=== PATIENT | female | born 1950 | race Caucasian/White ===

== ENCOUNTER → 2016-07-27 | Day surgery (SDC) | payer MEDICARE ==
[~2016-07-27] MED LIST: BUPIVACAINE/EPINEPHRINE 0.5% PF 10 ML VIAL ONE; LACTATED RINGER'S 1000 ML INJ 1,000 ML ONE; LIDOCAINE 1%/EPINEPHrine 1:100,000 SOLN 20 ML VIAL ONE; MIDAZOLAM HCL 2 MG/2 ML VIAL ONE; ONDANSETRON HCL 4 MG/2 ML VIAL IV PUSH ONE; PROPOFOL 200 MG/20 ML AMP IV ONE; SODIUM CHLORIDE 0.9% INJ 10 ML ONE; ceFAZolin INJ 1,000 MG VIAL ONE
--- NOTE | 2016-07-27 09:25 | TN ---
cc: NILESH QUINONEZ M.D., RUBY ANNE E. M.D. DATE OF SURGERY: 07/27/2016 PREOPERATIVE DIAGNOSIS Breast cancer in need of Umtwto-S-Njjl for chemotherapy. POSTOPERATIVE DIAGNOSIS Breast cancer in need of Pjilaf-X-Zneo for chemotherapy. PROCEDURE Placement of Tdpahp-R-Wyyl under fluoroscopic guidance. ANESTHESIA MAC. SURGEON Dr. Quinonez INDICATION This is a pleasant 65-year-old female who was found to have a breast cancer. She had a previous mastectomy of the other breast and now has this tumor that is HER-2/erin positive. Plans were made for neoadjuvant chemotherapy. DETAILS OF PROCEDURE The patient was taken to the operating room and placed ins supine position. After anesthesia her left shoulder and chest are prepped with Betadine. We anesthetize with Marcaine solution, cannulate the subclavian vein without difficulty. Under fluoroscopic guidance we thread the guidewire into the superior vena cava. We make a subcutaneous pocket. The catheter is cut at 19 cm. The introducer and dilator are then threaded over the guidewire, the guidewire and dilator removed. The catheter is placed in the introducer, the introducer was removed. The catheter is then adjusted so the tip is at the superior vena cava. It is then snapped into place, aspirates blood quite easily and flushed with heparinized solution. This is all done under fluoroscopic guidance. We then close the deep layer with a 3-0 Vicryl and skin with a 4-0 Vicryl. Steri-Strips are applied. Sterile bandage applied. A stat. portable chest x-ray is pending at the time of this dictation. I was told by PACU cxr was ok Nilesh Quinonez MD JKRISTI/CURTIS /9:13 AM /9:18 AM JUSTIN
== END | disposition home or self-care (01) ==
LOC: ESDC 06:52
PROVIDERS: ATTEND Surgery
DX: C50.911 Malignant neoplasm of unspecified site of right female breast (principal); Z17.0 Estrogen receptor positive status [ER+]
CPT/HCPCS: 00532; 36561; 77001; C1788; J0690; J1642; J2250; J2405; J3010; J7120

== ENCOUNTER → 2016-12-13 | Day surgery (SDC) | payer MEDICARE ==
[~2016-12-13] MED LIST changes: +ACETAMINOPHEN 1000 MG/100 ML VIAL IV ONE; +ACETAMINOPHEN/HYDROcodone 325 MG/5 MG TAB ONE; +APREPITANT 40 MG CAP ONE; +BACITRACIN IM FOR SOLN 50,000 UNIT VIAL ONE; +BUPIVACAINE LIPOSOME PF 1.3% 20 ML VIAL ONE; -BUPIVACAINE/EPINEPHRINE 0.5% PF 10 ML VIAL ONE; +BUPIVACAINE/EPINEPHRINE 0.5% PF 30 ML VIAL ONE; +GENTAMICIN SULFATE 80 MG/2 ML VIAL ONE; +ISOSULFAN BLUE 50 MG/5 ML VIAL SQ ONE; +KETOROLAC TROMETHAMINE 30 MG/ML (IVP) VIAL IV PUSH ONE; -LIDOCAINE 1%/EPINEPHrine 1:100,000 SOLN 20 ML VIAL ONE; +LIDOCAINE 1%/EPINEPHrine 1:100,000 SOLN 50 ML VIAL ONE; +MEPERIDINE HCL 25 MG/ML VIAL ONE; +SODIUM CHLORIDE 0.9% 20 ML VIAL ONE; -SODIUM CHLORIDE 0.9% INJ 10 ML ONE
--- NOTE | 2016-12-13 13:39 | TN ---
cc: EMILY POLLACK M.D. DATE OF SURGERY: 12/13/2016 PREOPERATIVE DIAGNOSIS History of right breast cancer. POSTOPERATIVE DIAGNOSIS: History of right breast cancer. PROCEDURE: Right breast reconstruction utilizing tissue gate agent of the [employer] and a 6 x 16 Alloderm, the tissue gate agent is a 133 XB serial number [id number], expanded to maximal expansion 300, expanded interrupt zero. The 6 x 16 AlloDerm is thick, drains two, one 7 mm Julian-Delcid, one 10 mm Julian-Delcid drain. COMPLICATIONS None PROCEDURE The patient had undergone a mastectomy performed by Dr. Nilesh Quinonez and for that please refer to his dictation. The patient remained under anesthesia with the right defect exposed, right chest exposed showing the pectoris major muscle and the patient also had undergone some axillary node sampling. After I assured meticulous hemostasis I reconstructed the anterior axillary line with multiple 2-0 Monocryl sutures, [id number] sutures along and up to the anterior axillary line. With this I proceeded to perform the elevation of the pectoris major muscle, preserving significant of the inferomedial fibers as the patient had an extended long muscle. Attachment of the ADM was done and lateral inferiorly into the lateral wall and with this I proceeded to introduced a tissue gate agent deflated. It was properly and completely closed utilizing the same suture material. Two drains a 10-mm IDA in the supra pectoral plane was a left and a 9 cm IDA was left in the retroperitoneal plane and brought out through a separate stab wound. With this I proceeded to perform the closure of the wounds utilizing 2-0 Monocryl suture to the dermis and Subcu and Prima Dermabond was utilized for the incision. The drains were dressed with Biopatch and Tegaderm. Good viability of tissue was noted at the end of the case. The patient was awakened, extubated in the upper room transferred back to the postanesthesia care unit in stable condition. No complications were appreciated, the patient tolerated the procedure fairly well. MD JAYE Hussein/bo /1:00 PM /1:08 PM JUSTIN
--- NOTE | 2016-12-13 17:54 | TN ---
cc: EMILY URIOSTEGUI RUBY ANNE E. M.D. SAWYER QUINONEZ M.D. DATE OF SURGERY: 12/13/2016 Pre op Diagnosis This is a pleasant 65-year-old female who was found to have an ER positive breast cancer with HER2 positive just under the nipple-areolar complex. She underwent neoadjuvant chemotherapy under the direction of Dr. Diane which had some response. Plans were made for above. POSTOPERATIVE DIAGNOSIS Right-sided breast cancer. PROCEDURE 1. Injection of Lymphazurin blue dye for sentinel node identification. 2. Right mastectomy skin sparing with identification of three sentinel nodes by lymphatic mapping. ANESTHESIA General SURGEON Dr. Quinonez PLASTIC SURGEON Dr. Uriostegui is the plastic surgeon who did breast reconstruction. See his operative note. INDICATIONS: This is a pleasant lady who underwent neoadjuvant chemotherapy and had a fairly good clinical response to the chemotherapy under the direction of Dr. Diane. DESCRIPTION OF PROCEDURE: The patient was placed on the operating room table, after general anesthesia, her right breast and axillary region and chest was prepped with Betadine. Prior to doing this, time out was done. We did inject 6 cc of Lymphazurin blue dye at the 9 o'clock position where her tumor was located. We identified a hot spot in the axillary region by lymphoscintigraphy. We make an elliptical incision around the nipple-areolar complex for skin sparing mastectomy, dissect just under the skin superiorly inferiorly, medially and laterally down to the pectoralis muscle where the tissue is then elevated off the pectoralis muscle to the axillary tail. A lymph node can be palpated and visualized in the axillary tail with an ex vivo count of 5,487. This is labeled sentinel node #1. The breast is then removed and marked with a silk stitch at the 12 o'clock position. Two other sentinel nodes are identified with an ex vivo count #1 of 821 and another one with 827. All three of these nodes are blue. There is a small lymph node that is firm but not blue and does not have any radioactivity and this was removed as well. No other lymphadenopathy was noted. No other hot spots and no other blue dye. The area was irrigated copiously, and the procedure was then turned over to Dr. Uriostegui to do his reconstruction. See the operative note for the details of his procedure. MD AMY Ford/LEE /4:59 PM /5:43 PM JUSTIN
== END | disposition home or self-care (01) ==
LOC: ESDC 06:57
PROVIDERS: ATTEND Plastic Surgery
DX: C50.911 Malignant neoplasm of unspecified site of right female breast (principal)
CPT/HCPCS: 00400; 00402; 01610; 15777; 19304; 19357; 38525; 38792; 88305; 88307; C1789; C9290; J0131; J0690; J1580; J1885; J2175; J2250; J2405; J3010; J7120; J8501; Q4116; Q9968

== ENCOUNTER → 2017-02-28 | Day surgery (SDC) | payer MEDICARE ==
--- NOTE | 2017-02-07 15:50 | TH ---
cc: EMILY POLLACK M.D. DATE: 02/28/2017 HISTORY: Preoperative history and physical, the patient is to undergo the removal or replacement of the right breast. 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 HISTORY OF PRESENT ILLNESS: Miss Santiago is a pleasant 65 year old female who underwent insertion of tissue fuel cell systems engineer after mastectomy on 12/13/2016. She has done very well. She has been expanded to 220. She is ready for the exchange. PAST MEDICAL HISTORY: 1. Her past medical history is otherwise unremarkable, 2. otherwise osteoporosis. 3. She did have blepharoplasty 4. A cholecystectomy. MEDICATIONS 1. Herceptin 2. Taxotere 3. Filgrastim 4. Carboplatin 5. She also takes T3 6. Probiotic. ALLERGIES NONE HABITS Evaluation was unremarkable. EXAMINATION/PHYSICAL EXAM CONSTITUTIONAL: General appearance. The patient is a well-developed female in no acute distress. Body habitus is within normal limits. There appear to be no deformities. Appears to have attention to grooming. HEENT: Eyes Conjunctivae and lids are within normal anatomical limits. The pupils are reactive to light and accommodation, size, and symmetry. There is no evidence of exudate, hemorrhage, or vessel change. Ears, mouth, nose, and throat The external inspection of the ears and nose fails to demonstrate any pathology, scars, lesions, or masses. Nasal mucosa, septum, and turbinates appear to be well hydrated as well as the lips and gums. No evidence of masses in the hypopharynx or submental area. RESPIRATORY: The patient shows no evidence of intercostal refractions. Otherwise, lungs are clear to auscultation without any abnormal sounds or rubs. CARDIOVASCULAR: The patient has a normal heart rate and rhythm. There is no evidence of noticed carotid bruits. Femoral pulses and pedal pulses in extremities are also within normal limits. GASTROINTESTINAL/ABDOMEN: Soft with no evidence of masses or tenderness. Unable to palpate the liver or spleen. No evidence of hernia. MUSCULOSKELETAL: Appears to be reasonable range of motion on the head, neck, spine, ribs, pelvis, right upper extremity, left upper extremity, right lower extremity, and left lower extremity. The muscle strength and tone appears to be equal and within accepted limits. SKIN: There is no rashes, lesions, or ulcers on the trunk, back, and extremities. NEUROLOGICAL: Examination is grossly normal. PSYCHIATRIC: The patient appears to have good orientation of time, place, and person. Does not appear to have any mood effects of depression, anxiety, or agitation. BREAST EXAMINATION: Examination of the breast shows well-healed tissue fuel cell systems engineer right mastectomy with a well-healed left breast tissue as the patient had previous surgery there as well. PLAN: The plan as above. MD JAYE Hussein/bo /1:45 PM /3:46 PM
[~2017-02-28] MED LIST changes: -ACETAMINOPHEN 1000 MG/100 ML VIAL IV ONE; +ACETAMINOPHEN 1000 MG/100 ML VIAL ONE; -ACETAMINOPHEN/HYDROcodone 325 MG/5 MG TAB ONE; -BUPIVACAINE LIPOSOME PF 1.3% 20 ML VIAL ONE; +BUPIVACAINE/EPINEPHRINE 0.25% 50 ML VIAL ONE; -BUPIVACAINE/EPINEPHRINE 0.5% PF 30 ML VIAL ONE; -ISOSULFAN BLUE 50 MG/5 ML VIAL SQ ONE; -KETOROLAC TROMETHAMINE 30 MG/ML (IVP) VIAL IV PUSH ONE; +LACTATED RINGER'S 1000 ML INJ 1,000 ML IV SCH; -LACTATED RINGER'S 1000 ML INJ 1,000 ML ONE; -LIDOCAINE 1%/EPINEPHrine 1:100,000 SOLN 50 ML VIAL ONE; +LIDOCAINE 1%/EPINEPHrine 1:200,000 PF SOLN 30 ML VIAL ONE; -MEPERIDINE HCL 25 MG/ML VIAL ONE; -ONDANSETRON HCL 4 MG/2 ML VIAL IV PUSH ONE; -PROPOFOL 200 MG/20 ML AMP IV ONE; +ceFAZolin 1,000 MG/NS 100 ML IV SCH
== END | disposition home or self-care (01) ==
LOC: ESDC 06:29
PROVIDERS: ATTEND Plastic Surgery
DX: C50.911 Malignant neoplasm of unspecified site of right female breast (principal); Z53.9 Procedure and treatment not carried out, unspecified reason
CPT/HCPCS: G0463; J0131; J0690; J1580; J2250; J8501; 99211

== ENCOUNTER → 2017-03-02 | Day surgery (SDC) | payer MEDICARE ==
[~2017-03-02] MED LIST changes: +ACETAMINOPHEN 1000 MG/100 ML 100 ML IV ONE; -ACETAMINOPHEN 1000 MG/100 ML VIAL ONE; +ACETAMINOPHEN/HYDROcodone 325 MG/5 MG TAB ONE; -LACTATED RINGER'S 1000 ML INJ 1,000 ML IV SCH; +LACTATED RINGER'S 1000 ML INJ 1,000 ML ONE; +ONDANSETRON HCL 4 MG/2 ML VIAL IV PUSH ONE; +PROPOFOL 200 MG/20 ML AMP IV ONE; -ceFAZolin 1,000 MG/NS 100 ML IV SCH
--- NOTE | 2017-03-02 13:17 | TN ---
cc: STEVENSON URIOSTEGUI M.D. DATE OF SURGERY 03/02/2017 PREOPERATIVE DIAGNOSIS Status post bilateral mastectomy on the right side, recently reconstruction utilizing a tissue senior clinical data coordinator and left side status post reconstruction with a TRAM with further ptosis. PROCEDURE Removal/replacement of a right tissue senior clinical data coordinator for an implant, style 410 full height low-profile 220 cc implant, serial number [id number] and on the left breast we did a revision reconstruction reducing the envelope of the [place] skin. SURGEON Stevenson Uriostegui MD ANESTHESIA LMA general, plus a total of approximately 60 cc of 1% lidocaine with epinephrine mixed with 0.25% Marcaine in a 2:1 ratio. PROCEDURE Patient was properly consented, marked and anesthetized. The skin was sterilized with Betadine solution and sterile draping applied. Through a previous mastectomy incision, a trap door incision was carried out, rim deflated and then removing the tissue senior clinical data coordinator. Lateral and inferior capsulorrhaphies were done utilizing 0-silk in multiple nbalpy-vx-agagz fashion. Superomedial capsulotomies were done where needed. I also perform an approximately 10 cc of fat transfer from the axillary edge to the upper pole of the right breast. I utilized a 1.5 mm cannula. Once that was done, I proceeded and re-irrigated the pocket. The skin was covered with Tegaderm and the implant was introduced without any difficulty. The wounds were closed using multiple 2-0 Monocryl sutures in layers and the capsule, dermis and subcu. Attention was directed to the left TRAM where the excess skin was properly marked and de-epithelialized and the wound was closed as a tissue rearrangement for revision reconstruction of the left breast of approximately/tissue recovery rearrangement for a primary defect of 9 x 3-1/2 cm and a secondary is approximately 11 x 4 cm. The same 2-0 Monocryl suture was utilized in two layers as well as Prineo Dermabond for the skin. Absorbent dressings applied. Good viability of tissue was noted at the end of the case. The patient was awakened and extubated in the operating room, transferred back to the postanesthesia care unit in stable condition. No complications appreciated. The patient tolerated the procedure fairly well. MD JAYE Hussein/SHARRON /12:56 PM /1:05 PM MTDCarol
== END | disposition home or self-care (01) ==
LOC: ESDC 11:01
PROVIDERS: ATTEND Plastic Surgery
DX: Z85.3 Personal history of malignant neoplasm of breast (principal); Z90.13 Acquired absence of bilateral breasts and nipples
CPT/HCPCS: 00402; 11970; 19380; C1789; J0131; J0690; J1580; J2250; J2405; J3010; J7120; J8501